=== PATIENT | female | born 1945 | race Caucasian/White ===

== ENCOUNTER → 2016-05-17 | Outpatient (CLI) | payer MEDICARE, BC ==
[~2016-05-17] MED LIST: ACETAMINOPHEN650 M3 PO; ALLOPURINOL300 MG PO; ALPRAZOLAM0.25 MG PO; AMLODIPINE BESYL5 MG PO; ATIVAN0.5 M1 PO; ATIVAN0.5 MG; BACTROBAN15 GM TOP; BENAZEPRIL HCL5 MG PO; BENZAPRIL PO; CALCIUM 500 +1 EAC2 PO; CALCIUM CIT-VI1 EACH PO; CALCIUM CITRATE PO; CALCIUM CITRATE1 T15 PO; CENTRUM SILVER PO; CLARITIN10 M2 PO; CLOBETASOL 0.0560 GM TOP; CLOBETASOL PROP15 GM TP; CO Q-10200 MG PO; CYMBALTA PO; DOK100 MG PO; EXCEDRIN EXTRA1 EAC3 PO; FEOSOL PO; FIBER CHOI1 TAB.CHE1 PO; FIBER GUMMIES2.5 GM PO; GLUCOSAMINE CHO1 CA1 PO; GLYCOPYRROLATE1 MG PO; HYDROCHLOROTHIA25 MG PO; HYDROCODON-ACE1 EAC1 PO; HYDROCODON-ACE1 EAC5 PO; HYDROCODONE-A1 UDTA4 PO; HYDROXYZINE HCL25 M1 PO; LOPRESSOR PO; LORTAB 5/500 TA1 TA1 PO; LOTENSIN20 MG PO; METOPROLOL SUCC50 MG PO; METOPROLOL TAR25 MG PO; MUPIROCIN 2% TOP; PROBIOTIC1 EACH PO; RECLAST 55 MG/100 M IV; ROBINUL1 MG PO; SERTRALINE HCL100 M1 PO; SIMVASTATIN40 MG PO; TOPROL XL 50 MG50 M1 PO; VITAMIN D1000 UNI2 PO; VITAMIN D1000 UNIT PO; VITAMIN D400 UNI2 PO; XANAX0.5 M1 PO; ZOLOFT100 MG PO
== END | disposition home or self-care (01) ==
LOC: CLAB 13:05
DX: R19.7 Diarrhea, unspecified (principal)
CPT/HCPCS: 87045; 87177; 87209; 87427; 87493; 87899

== ENCOUNTER → 2016-05-23 | Day surgery (SDC) | payer MEDICARE, BC ==
--- NOTE | ~2016-05-23 | OR ---
Unit #: [id number] #: [id number] Patient: HEBERT DOWD [id number] [address] [address] [id number] O MR#: [id number] NAME: HEBERT DOWD ROOM: Date of Procedure: 05/23/2016 Admission Date: 05/23/2016 Surgeon: Mathieu Daniels M.D. : 1945 Attending Physician: Mathieu Daniels M.D. Primary Care Physician: Emery Bain M.D. OPERATIVE REPORT PREOPERATIVE DIAGNOSES 1. Diarrhea. 2. Change in bowel habits. POSTOPERATIVE DIAGNOSES 1. Diarrhea. 2. Change in bowel habits. PROCEDURES PERFORMED 1. Colonoscopy to cecum. 2. Multiple random biopsies throughout colon. ANESTHESIA Monitored anesthesia care. FINDINGS The patient was found to have normal colon to the cecum other than mild internal hemorrhoids. Multiple biopsies were taken throughout the colon for pathologic evaluation. SPECIMENS Sent to Pathology. COMPLICATIONS None apparent. CONDITION The patient tolerated the procedure well. INDICATIONS FOR PROCEDURE The patient is a 71-year-old white female, who presents at this time with the onset of diarrhea 2 to 3 months ago. She presents at this time for evaluation by colonoscopy. DESCRIPTION OF PROCEDURE After obtaining informed consent, the patient was brought to the endoscopy suite and after adequate monitored anesthesia care, had the colonoscope placed through the anus and slowly advanced to the level of the cecum without difficulty with the lumen always in view. The cecum was normal as was the ileocecal valve. The ascending colon was normal as was the hepatic flexure, transverse colon, splenic flexure, descending colon, sigmoid colon, and rectum. On retroflexing in the rectum to the anorectal Unit #: [id number] #: [id number] Patient: HEBERT DOWD junction, the patient was found to have some [id number]-gt-[id number] internal hemorrhoids. Multiple random biopsies were obtained and scattered throughout the colon for pathologic evaluation. Good hemostasis was present in each location. The patient had the scope removed without difficulty. On digital examination, there was good sphincter tone. No masses palpable. The patient went from the operating room to the recovery room in stable condition. RECOMMENDATIONS High-fiber diet, lots of liquids, tucks or wipes p.r.n. Call Monday for pathology. Dictated by... Eliana Caro/sabiha TD: 05/23/2016 16:35 JOB #: [id number] CC: Emery Bain M.D. [facility] OPERATIVE REPORT Page 1 of 1 X Mathieu Daniels MD X PROCEDURE OPERATIVE NOTE
== END | disposition home or self-care (01) ==
LOC: COPS 09:43
PROVIDERS: Surgery
PROC: 0DBE8ZX Excision of Large Intestine, Via Natural or Artificial Opening Endoscopic, Diagnostic (ICD-10-PCS; principal; 2016-05-23 12:00)
DX: K63.89 Other specified diseases of intestine (principal); K64.8 Other hemorrhoids; I10 Essential (primary) hypertension; E78.5 Hyperlipidemia, unspecified; M10.9 Gout, unspecified; Z79.899 Other long term (current) drug therapy; M81.0 Age-related osteoporosis without current pathological fracture; I51.7 Cardiomegaly; I51.9 Heart disease, unspecified; R39.15 Urgency of urination; E83.51 Hypocalcemia; J30.9 Allergic rhinitis, unspecified; F41.8 Other specified anxiety disorders; R42 Dizziness and giddiness; M17.0 Bilateral primary osteoarthritis of knee; R61 Generalized hyperhidrosis; Z87.440 Personal history of urinary (tract) infections; Z98.890 Other specified postprocedural states; Z87.09 Personal history of other diseases of the respiratory system; Z82.5 Family history of asthma and other chronic lower respiratory diseases; Z82.3 Family history of stroke; Z82.49 Family history of ischemic heart disease and other diseases of the circulatory system; Z88.1 Allergy status to other antibiotic agents; Z88.6 Allergy status to analgesic agent
CPT/HCPCS: 88305

== ENCOUNTER → 2016-08-10 | Outpatient (CLI) | payer MEDICARE, BC ==
--- NOTE | ~2016-08-10 | EKG ---
PATIENT: HEBERT DOWD UNIT #: [id number] Ventricular Rate: 57 BPM Atrial Rate: 57 BPM P-R Interval: 188 ms QRS Duration: 94 ms Q-T Interval: 446 ms QTC Calculation(Bezet): 434 ms P [place]: 42 degrees Calculated R [place]: -60 degrees Calculated T [place]: -22 degrees Diagnosis Line: Sinus bradycardia Diagnosis Line: Left axis deviation Diagnosis Line: Low voltage QRS Diagnosis Line: Incomplete right bundle branch block Diagnosis Line: Abnormal ECG Diagnosis Line: When compared with ECG of 09-SEP-2015 13:10, Diagnosis Line: Questionable change in initial forces of Lateral Diagnosis Line: leads Diagnosis Line: Confirmed by ANDREAS SALOMON MD ([id number]) on 08/11/2016 Diagnosis Line: 6:35:23 PM INTERPRETING MD: UMM MCKENNA
--- NOTE | ~2016-08-10 | CO ---
Unit #: [id number] #: [id number] Patient: HEBERT DOWD [id number] [address] [place], [place] [address] [id number] O MR#: [id number] NAME: HEBERT DOWD ROOM: Age: 71 Sex: F Admission Date: 08/10/2016 : 1945 Attending Physician: Antonio King M.D. Primary Care Physician: Emery Bain M.D. Consultation Date: 08/10/2016 CONSULTATION REPORT REASON FOR CONSULTATION Preoperative medical evaluation prior to left total knee arthroplasty scheduled by Dr. King for 08/24/2016. HISTORY OF PRESENT ILLNESS The patient is a 71-year-old female, who presents to preprocedural screening for the reasons indicated above. She reports a history of left knee pain, which has actually improved since injection with corticosteroid by Dr. King. She reports however that the interval between injections is decreasing and she has been evaluated and scheduled for left knee arthroplasty by Dr. King. She has no complaints at the time of the interview today. She denies upper chest pain, arm, neck, back, jaw pain, or pressure. She does report shortness of air when carrying groceries in from the house up and back down four or five steps after several trips. She denies chest pain with exertion. She also reports intermittent lightheadedness while standing at home without associated symptoms, which resolves spontaneously. She denies history of myocardial infarction, known history of congestive heart failure; although, she says she has been told by Dr. Bain, her primary care physician, that she had an enlarged heart on chest x-ray. She denies palpitations. PAST MEDICAL HISTORY Osteoarthritis; osteoporosis; gout; hypertension; hyperlipidemia; anxiety; history of hyperhidrosis, status post bilateral sympathectomy with continued profuse sweating on the right temporal parietal aspect of the scalp and back; history of microcytic anemia; postprandial diarrhea with negative GI workup per patient report; remote history of MRSA; history of cardiomegaly per chest x-ray evaluation and last dental exam including within the past 6 months. PAST SURGICAL HISTORY 1. x3. 2. Hemorrhoidectomy. 3. Carpal tunnel release. 4. Tonsillectomy. 5. Colonoscopy. 6. Right foot fracture and repair. 7. Bilateral sympathectomy. 8. Left knee injection every 3 months. 9. Left shoulder replacement. 10. Bilateral cataract extractions. The patient denies personal and family history of complications to anesthesia. Unit #: [id number] #: [id number] Patient: HEBERT DOWD SOCIAL HISTORY Denies current tobacco use; although, she has a history of cigarette smoking. Denies ETOH or illicit drug use. FAMILY HISTORY Per review of Dr. King's office note and reviewed with the patient, mother with hypertension, father with stroke and COPD. Mother also had an irregular heartbeat. The parents also had osteoporosis. REVIEW OF SYSTEMS A 10-point review of systems is conducted and otherwise negative except as indicated under history of present illness above. ALLERGIES No known medication allergies. Denies latex allergy, adverse reaction. NSAIDs cause elevated creatinine, and tetracycline-based antibiotic. CURRENT MEDICATIONS Calcium 500+ D tab one p.o. b.i.d., Ativan 0.5 mg p.o. at bedtime p.r.n. anxiety, metoprolol succinate 50 mg p.o. b.i.d., Zoloft 200 mg p.o. at bedtime, simvastatin 40 mg p.o. at bedtime, vitamin D 1000 units p.o. every morning, Centrum Silver 1 tab p.o. every evening, probiotic one cap every morning, Claritin 10 mg p.o. every morning, Excedrin Extra Strength caplet one tab p.o. q.6 hours p.r.n. pain, allopurinol 300 mg p.o. every morning, Lotensin 20 mg p.o. every morning. PHYSICAL EXAMINATION GENERAL: A 71-year-old female, awake, alert, in no acute distress. VITAL SIGNS: Temperature 97, heart rate 60, respiratory rate 16, blood pressure 105/70, oxygen saturation 97% on room air. HEENT: Atraumatic and normocephalic. Sclerae anicteric. No discharge from eyes, ears, or nares. LYMPH: No preauricular, postauricular, tonsillar, submental, anterior or posterior cervical, supra or infraclavicular adenopathy. ENDOCRINE: No thyromegaly or thyroid nodules. RESPIRATORY: Clear to auscultation in all kumari bilaterally without wheezes, rhonchi, or rales. CARDIOVASCULAR: S1 and S2. Regular rate and rhythm without murmur or rub. No carotid bruits. GI: Bowel sounds are positive x4. Soft, nontender, nondistended. EXTREMITIES: No edema, cyanosis, or clubbing. MUSCULOSKELETAL: Strength 5/5 in all extremities bilaterally to flexion and extension. NEUROLOGIC: Alert and oriented x3. Speech clear. Follows instructions during the examination. DIAGNOSTIC STUDIES LABORATORY RESULTS: WBC 10.6, hemoglobin 13.1, hematocrit 41.0, platelets 323,000. Sodium 140, potassium 4.9, chloride 108, CO2 of 25, glucose 104, BUN 25, creatinine 0.8, calcium 10.0. AST 32, ALT 30, alkaline phos 100, bilirubin total 0.7, total protein 7.0, albumin 3.9. Urinalysis; leukocyte esterase 1+, nitrite negative, protein 1+, wbc's 5 to 10, bacteria negative. Urine culture and sensitivity pending at this time. PT 9.9, INR 0.9. Unit #: [id number] #: [id number] Patient: HEBERT DOWD IMAGING STUDIES: Two-view chest x-ray report pending at this time. CARDIOVASCULAR STUDIES: 12-lead EKG, sinus bradycardia, left axis deviation, low voltage QRS, inferior infarct age undetermined, anterolateral infarct age undetermined. Abnormal ECG. IMPRESSION The patient is a 71-year-old female, who presents to preprocedural screening for; 1. Preoperative medical evaluation prior to left total knee arthroplasty scheduled by Dr. King. The patient's Bernstein revised cardiac risk index is equal to 0.4%. This represents a perioperative risk of fatal or nonfatal myocardial infarction, cardiopulmonary arrest, arrhythmia and/or pulmonary edema. This has been discussed in detail with the patient. Given the patient's description of shortness of air, almost to the point of gasping after carrying several bags of groceries up and down her stairs, I have recommended that the patient have a preoperative cardiac evaluation and clearance. The patient is in agreement with this plan. She saw Dr. Dubois in the past and has been given a note to take to his office in order to schedule an appointment as soon as possible for cardiac clearance. A note will be faxed by [facility] to Dr. King's office. 2. Gout. Continue perioperative dose of allopurinol based on renal function. 3. Hypertension. Blood pressure is stable. Monitor blood pressure postoperatively on beta cait and on LESIA inhibitor. Will adjust medications accordingly. 4. Hyperlipidemia. 5. Anxiety. The patient's Stop-Bang protocol score in PACU may determine the patient's ability to continue home dose of Ativan at bedtime. 6. Osteoporosis. 7. History of hyperhidrosis, status post bilateral sympathectomy with continued right temporal occipital scalp sweating and profuse back sweating intermittently. 8. History of microcytic anemia. The patient's hemoglobin and hematocrit is stable at this time. We will monitor postoperatively. 9. Postprandial diarrhea, status post complete gastrointestinal workup with negative etiology per patient report. We will make sure the patient has a bedside commode in the room postoperatively. 10. Remote history of methicillin-resistant staphylococcus aureus (50 years ago). Contact precautions will likely not apply unless methicillin-resistant Staphylococcus aureus nasal swab report is positive. 11. History of cardiomyopathy. The patient states she had a 2D echocardiogram performed here within the past few years; however, this examination report is not in [facility]. We will await recommendations by Cardiology in this regard. 12. Health maintenance. The patient's dental exam was performed within the past 6 months. She will contact her dentist in order for them to send a letter of preop dental clearance to Dr. King's office prior to surgery. Thank you for allowing us to participate in the care of this patient. We will gladly follow her for postop medical management pending preop cardiac clearance and further orders of Dr. King. Dictated by... Emma Palacios A.P.R.N. for Maye West M.D. Unit #: [id number] #: [id number] Patient: HEBERT DOWD ANIL/sabiha TD: 08/11/2016 14:01 JOB #: [id number] CONSULTATION REPORT Page 1 of 1 X Emma Palacios APRN X CONSULTATION REPORT
--- NOTE | ~2016-08-10 | CR63 ---
[facility] A Service of [facility] & [facility] RADIOLOGY TEXT RESULTS PATIENT: HEBERT DOWD LOCATION: [facility] : 43 UNIT #: [id number] AGE: [address]: Antonio King MD SEX: F ORDER DR: [id number] [facility] [address] [place], [place] [address] [id number] O MR#: [id number] Acc #: [id number] NAME: HEBERT DOWD : 1945 SEX: F STUDY DATE/TIME: 08/10/2016 13:20 UNIT: [facility] ROOM: STUDY DESCRIPTION: CR Chest 2 View Attending Physician: Antonio King M.D. Referring Physician: Antonio King M.D. Ordering Physician: Antonio King M.D. Primary Care Physician: Emery Bain M.D. MEDICAL IMAGING REPORT This report is preliminary unless electronic signature is present EXAM Chest, 08/10/2016, [facility]. HISTORY 71-year-old woman; preop left total knee arthroplasty. Osteoarthritis. COMPARISON Chest 09/18/2015 COMPARISON 2-view chest demonstrates cardiomegaly. Hilar structures are preserved. Lungs are expanded and clear. Large body habitus with a mild thoracic kyphosis present. Left shoulder hardware partially imaged. IMPRESSION Atherosclerotic cardiovascular disease with stable cardiomegaly. No acute chest finding. Dictated by... Chucky Patton M.D. THIS IS AN ELECTRONICALLY VERIFIED REPORT Chucky Patton M.D. at 08/11/2016 8:09 AM TERRA/toya TD: 08/10/2016 16:03 JOB #: [id number] MEDICAL IMAGING REPORT Page 1 of 1 COPY
[2016-08-10 12:08] LABS: HEMOGLOBIN 13.1 gm/dL (12.0-16.0); MEAN CELL VOLUME 82.6 FL (83-96); MEAN CORPUSCULAR HEMOGLOBIN 26.4 PG (28-34); MEAN PLATELET VOLUME 7.6 FL (6.5-11.5); RED BLOOD COUNT 4.96 X10e (3.90-5.30); RED CELL DISTRIBUTION WIDTH 18.2 % (11.0-15.5); WHITE BLOOD COUNT 10.6 X10e3 (4.0-10.5)
[2016-08-10 12:18] LABS: URINE APPEARANCE CLEAR; URINE BILIRUBIN NEG (NEG); URINE BLOOD NEG (NEG); URINE COLOR YELLOW; URINE GLUCOSE NEG (NEG); URINE KETONE TRACE (NEG); URINE LEUKOCYTE ESTERASE 1+ (NEG); URINE NITRATE NEG (NEG); URINE PROTEIN 1+ (NEG); URINE SPECIFIC GRAVITY 1.023 (1.003-1.035); URINE UROBILINOGEN 0.2 MG/DL (NEG)
[2016-08-10 12:19] LABS: CULTURE INDICATED? YES; URINE BACTERIA AUWI NEG (NEGATIVE); URINE SQUAMOUS EPITHELIAL CELL OCC /[HPF]
[2016-08-10 12:20] LABS: INR 0.9; PROTHROMBIN TIME (PATIENT) 9.9 SECONDS (9.6-11.5)
[2016-08-10 12:46] LABS: ALBUMIN SERUM 3.9 g/dL (3.5-5.0); BILIRUBIN,TOTAL 0.7 mg/dL (0.2-2.0); BUN/CREATININE RATIO 31.25; CREATININE SERUM 0.8 mg/dL (0.6-1.4); GLOM FILT RATE Estimated 73.2 mL/min (>60); POTASSIUM 4.9 mmol/L (3.5-5.1)
[2016-08-10 13:10] LABS: URINE SOURCE CLEAN CATCH
[2016-08-10 13:14] LABS: URBCS1 AUWI 0-2 /[HPF] (0-2); URINE MUCUS PRESENT
== END | disposition home or self-care (01) ==
LOC: CAMB 11:28
PROVIDERS: Orthopaedic Surgery
DX: Z01.818 Encounter for other preprocedural examination (principal); M17.12 Unilateral primary osteoarthritis, left knee; M10.9 Gout, unspecified; I10 Essential (primary) hypertension; E78.5 Hyperlipidemia, unspecified; F41.9 Anxiety disorder, unspecified; M81.0 Age-related osteoporosis without current pathological fracture; I25.10 Atherosclerotic heart disease of native coronary artery without angina pectoris; I51.7 Cardiomegaly; Z79.01 Long term (current) use of anticoagulants
CPT/HCPCS: 36415; 71020; 80053; 81003; 85027; 85610; 86850; 86900; 86901; 87070; 87086; 93005

== ENCOUNTER 2016-08-24 08:06 | Inpatient (IN) | payer MEDICARE, BC ==
--- NOTE | ~2016-08-24 | OR ---
Unit #: [id number] #: [id number] Patient: HEBERT DOWD [id number] [address] [place] [id number] I MR#: [id number] NAME: HEBERT DOWD ROOM: [facility] Date of Procedure: 08/24/2016 Admission Date: 08/24/2016 Surgeon: Antonio King M.D. : 1945 Attending Physician: Antonio King M.D. Referring Physician: Antonio King M.D. Primary Care Physician: Emery Bain M.D. OPERATIVE REPORT PREOPERATIVE DIAGNOSIS Primary localized osteoarthritis of the left knee. POSTOPERATIVE DIAGNOSIS Primary localized osteoarthritis of the left knee. PROCEDURE PERFORMED Left total knee. ASSISTANTS Vianey Piña and Yamilet Reyes. ANESTHESIA Adductor canal block plus general. ESTIMATED BLOOD LOSS 100 mL. INDICATIONS FOR PROCEDURE This is a 71-year-old with severe pain in her left knee. She has had pain for years. It has gotten progressively worse. The pain limits her walking and standing and limits her daily activities such as shopping. Her x-rays show she has [id number]-[id number] with subchondral sclerosis and periarticular osteophytes. She has had no relief with injections of steroids or anti-inflammatories. DESCRIPTION OF PROCEDURE The patient was brought to the holding room and given 2 g of Kefzol and 1500 mg of vancomycin. The Kefzol will be continued postop, but discontinued within 23 hours from the start time of surgery. She was then given an adductor canal block and brought back to the operating room, given a general anesthetic. Tourniquet placed around the left thigh. The left leg was prepped and draped in a sterile fashion. After this was done, the tourniquet was inflated to 300. A straight anterior skin incision was made. The subcutaneous dissected away and a medial arthrotomy was performed. Patella was slid to the side. Osteophytes were removed from the femur. The intramedullary guide was used and a 6-degree valgus cut was made on the distal femur. The femur was sized and found to be a size 2.5. The anterior-posterior cutting block was applied. Rotation checked in the knee. Anterior and posterior cuts were made along with the chamfer cuts. Proximal tibial cut was made using a 0-degree cutting block. It was sized at a 2.5 as well. Any remaining meniscal Unit #: [id number] #: [id number] Patient: HEBERT DOWD fragments were debrided and then the posterior capsule and periosteum were injected with ropivacaine mixture. Trial femur was applied. The drill holes were made for lugs on the femoral component. Trial tibia was applied with first a 10 and then a 12.5 insert. The 12.5 gave better stability and still came to full extension. Rotation of the tibia was marked. The external alignment guide showed appropriate alignment of the limb. The patella was grasped with 2 towel clips. It measured 22 mm thick, cut smooth at 14 and a 35 patella was the appropriate size. The 3 drill holes were made. Trial patella applied and it tracked properly. We then removed all the trials. We used the drill and punch for the tibial tray. The knee was irrigated and dried while the cement was mixed. Then, all 3 components were cemented simultaneously. Once again, it was a size 2.5 femur, 2.5 tray, and a 35 patella from the De[employer] P[employer] Sigma knee system. After this was done, the wound was irrigated with Betadine and bacitracin and then closed using 0 Ethibond in the arthrotomy, 0 and 2-0 in the subcu, and skin was closed with Prineo Dermabond closure. clinical assistant professor, Vianey Piña was present throughout the entire case. Dictated by... Eliana Chakraborty/sabiha TD: 08/25/2016 06:08 JOB #: [id number] OPERATIVE REPORT Page 1 of 1 X Antonio King MD PROCEDURE OPERATIVE NOTE
--- NOTE | ~2016-08-24 | DS ---
Unit #: [id number] #: [id number] Patient: HEBERT DOWD [id number] [address] [address] [id number] I MR#: [id number] NAME: HEBERT DOWD ROOM: 455 Age: 71 Sex: F Admission Date: 08/24/2016 : 1945 Discharge Date: 08/25/2016 Attending Physician: Antonio King M.D. Referring Physician: Antonio King M.D. Primary Care Physician: Emery Bain M.D. DISCHARGE SUMMARY ADMITTING DIAGNOSIS Primary localized osteoarthritis of left knee. DISCHARGE DIAGNOSIS Primary localized osteoarthritis of left knee. PROCEDURE IN THE HOSPITAL Left total knee. HOSPITAL COURSE The patient was admitted on August 24, 2016, and taken to the operating room where she underwent a left total knee replacement. Postoperatively, she has done well through the evening. She is afebrile. Hemoglobin is 9.6. INR is 1.4. Her pain is controlled. It is felt she can be discharge to the detention unit on the third floor. She is weightbearing as tolerated. She will be on her routine home medicines plus Coumadin 6 mg daily and her Rosamond 10/325 for pain. We will check her pro times tomorrow and Monday and adjust her Coumadin dose appropriately. CONDITION ON DISCHARGE Improved. DISPOSITION To the detention unit. Dictated by... Eliana Chakraborty/rosa TD: 08/25/2016 11:38 JOB #: [id number] Unit #: [id number] #: [id number] Patient: HEBERT DOWD DISCHARGE SUMMARY Page 1 of 1 X Antonio King MD X DISCHARGE SUMMARY
[2016-08-24 09:21] LABS: PROTHROMBIN TIME (PATIENT) 10.8 SECONDS (10.0-11.7)
[2016-08-25 04:40] LABS: BASOPHIL% 0.3 % (0-2.5); DIFF IND NO; EOSINOPHIL# 0.1 X10e3 (0-0.7); EOSINOPHIL% 0.9 % (0.0-7.0); HEMOGLOBIN 9.6 gm/dL (12.0-16.0); LYMPHOCYTE# 1.2 X10e3 (1.0-3.5); LYMPHOCYTE% 13.5 % (17.0-45.0); MEAN CELL VOLUME 83.7 FL (83-96); MEAN CORPUSCULAR HEMOGLOBIN 26.8 PG (28-34); MEAN PLATELET VOLUME 7.6 FL (6.5-11.5); MONOCYTE# 0.8 X10e3 (0-1.0); MONOCYTE% 9.2 % (3.0-12.0); NEUTROPHIL# 6.9 X10e3 (1.5-7.1); NEUTROPHIL% 76.1 % (40-75); PLATELET COUNT 208 X10e3 (140-420); RED BLOOD COUNT 3.59 X10e (3.90-5.30); RED CELL DISTRIBUTION WIDTH 18.3 % (11.0-15.5)
[2016-08-25 04:54] LABS: INR 1.4; PROTHROMBIN TIME (PATIENT) 15.5 SECONDS (10.0-11.7)
[2016-08-25 05:04] LABS: BUN/CREATININE RATIO 26.66; CALCIUM SERUM 8.1 mg/dL (8.4-10.2); CREATININE SERUM 0.6 mg/dL (0.6-1.4); GLOM FILT RATE Estimated 90.4 mL/min (>60); MAGNESIUM 1.6 mg/dL (1.6-3.0); POTASSIUM 3.9 mmol/L (3.5-5.1)
[2016-08-26 03:57] LABS: INR 2.4; PROTHROMBIN TIME (PATIENT) 26.5 SECONDS (10.0-11.7)
[2016-08-26 04:12] LABS: BUN/CREATININE RATIO 22.85; CALCIUM SERUM 8.4 mg/dL (8.4-10.2); CREATININE SERUM 0.7 mg/dL (0.6-1.4); MAGNESIUM 2.1 mg/dL (1.6-3.0); POTASSIUM 3.8 mmol/L (3.5-5.1)
[2016-08-26 08:46] LABS: BASOPHIL% 0.2 % (0-2.5); EOSINOPHIL# 0.1 X10e3 (0-0.7); EOSINOPHIL% 1.1 % (0.0-7.0); HEMATOCRIT 32.2 % (35.0-45.0); HEMOGLOBIN 10.1 gm/dL (12.0-16.0); LYMPHOCYTE# 1.5 X10e3 (1.0-3.5); LYMPHOCYTE% 12.7 % (17.0-45.0); MEAN CELL VOLUME 83.1 FL (83-96); MEAN CORPUSCULAR HEMOGLOBIN 26.1 PG (28-34); MEAN CORPUSCULAR HGB CONC 31.4 g/dL (30-36); MEAN PLATELET VOLUME 7.9 FL (6.5-11.5); MONOCYTE# 1.2 X10e3 (0-1.0); NEUTROPHIL# 9.3 X10e3 (1.5-7.1); PLATELET COUNT 267 X10e3 (140-420); RED BLOOD COUNT 3.88 X10e (3.90-5.30); WHITE BLOOD COUNT 12.2 X10e3 (4.0-10.5)
[2016-08-26 10:49] LABS: DIFF IND NO
== END 2016-08-26 12:15 | DRG 470 ==
LOC: CSUR 08:06 → C4B 09:26 → CPACUOF 09:26 → CSUR 10:00 → C4B 12:10 → CPACUOF 12:10 → C4B 08-26 12:15
PROVIDERS: Nurse Practitioner; Orthopaedic Surgery
PROC: 0SRD0J9 Replacement of Left Knee Joint with Synthetic Substitute, Cemented, Open Approach (ICD-10-PCS; principal; 2016-08-24 10:00)
DX: M17.12 Unilateral primary osteoarthritis, left knee (principal); D62 Acute posthemorrhagic anemia; J44.9 Chronic obstructive pulmonary disease, unspecified; M10.9 Gout, unspecified; R73.9 Hyperglycemia, unspecified; T38.0X5A Adverse effect of glucocorticoids and synthetic analogues, initial encounter; Y92.239 Unspecified place in hospital as the place of occurrence of the external cause; I10 Essential (primary) hypertension; E78.5 Hyperlipidemia, unspecified; F41.9 Anxiety disorder, unspecified; R19.7 Diarrhea, unspecified; F31.9 Bipolar disorder, unspecified; E66.9 Obesity, unspecified; Z68.39 Body mass index [BMI] 39.0-39.9, adult; Z86.14 Personal history of Methicillin resistant Staphylococcus aureus infection
CPT/HCPCS: 80048; 83735; 85025; 85610; 94760; 97110; 97116; 97161; 97530; 97535; C1776; G8978-GP; G8979-GP; J0131; J0171; J0690; J0735; J1100; J1170; J1650; J1885; J2250; J2405; J2795; J3010; J3370; J3475

== ENCOUNTER → 2016-09-08 | Outpatient (CLI) | payer MEDICARE, BC ==
--- NOTE | ~2016-09-08 | US85 ---
[facility] A Service of [facility] & [facility] RADIOLOGY TEXT RESULTS PATIENT: HEBERT DOWD LOCATION: [facility] : 41 UNIT #: [id number] AGE: [address]: Antonio King MD SEX: F ORDER DR: [id number] [facility] [address] [place], [place] [address] [id number] O MR#: [id number] Acc #: [id number] NAME: HEBERT DOWD : 1945 SEX: F STUDY DATE/TIME: 09/08/2016 15:20 UNIT: [facility] ROOM: STUDY DESCRIPTION: LE Veins Unilat or Ltd Stdy Attending Physician: Antonio King M.D. Ordering Physician: Antonio King M.D. Primary Care Physician: Emery Bain M.D. MEDICAL IMAGING REPORT This report is preliminary unless electronic signature is present EXAM Left leg vein Doppler on 09/08 INDICATIONS Knee surgery on August 24. Swelling in the left ankle for the last 2 days. TECHNIQUE Venous ultrasound examination of the left lower extremity was performed using grayscale, spectral Doppler and color flow Doppler imaging. FINDINGS The examination is negative. There is no evidence of left1 lower extremity deep venous thrombus from the groin to the lower calf. Visualized greater saphenous vein is also patent. IMPRESSION Negative examination. No evidence of left lower extremity deep venous thrombosis. Dictated by... Derek Gray Jr., M.D. THIS IS AN ELECTRONICALLY VERIFIED REPORT Derek Gray Jr., M.D. at 09/08/2016 7:01 PM ABELINO/andres TD: 09/08/2016 17:45 JOB #: [id number] MEDICAL IMAGING REPORT Page 1 of 1 COPY
== END | disposition home or self-care (01) ==
LOC: CNIV 14:53
DX: M25.562 Pain in left knee (principal); M79.89 Other specified soft tissue disorders
CPT/HCPCS: 93971